=== PATIENT | female | born 1950 | race Caucasian/White ===

== ENCOUNTER 2023-08-24 05:59 | Observation (INO) ==
[~2023-08-24 05:59] MED LIST: Naloxone 0.4 mg VIAL 0.4 mg/ml 1 ml VIAL IV PRN; fentaNYL 100 mcg/2 ml 50 MCG/ML VIAL IV PRN
[2023-08-24 06:51] LABS: Rapid COVID-19 Molecular Undetected (Undetected)
[2023-08-24] MEDS ORDERED: ceFAZolin 2 GM PREMIX 2 GM/50 ML BAG ONE (07:00)
[2023-08-24] MEDS ORDERED: Tranexamic Acid 1 GM/100ML BAG 2,000 MG/200 ML BAG IV ONE (07:00)
[2023-08-24] MEDS: Lactated Ringers 1000 ml BAG 1,000 ML IV SCH ×2 (07:16→15:28)
[2023-08-24] MEDS ORDERED: ROPIVACAINE 5 MG/ML 30 ML BTL (0.5%) ONE ×2 (07:56→08:31)
[2023-08-24] MEDS ORDERED: fentaNYL 100 mcg/2 ml 50 MCG/ML VIAL ONE (07:57)
[2023-08-24] MEDS ORDERED: Dexamethasone IV 4 MG/ML VIAL 1 ml VIAL ONE ×2 (07:57→10:29)
[2023-08-24] MEDS ORDERED: Propofol 10 MG/ML 20 ML BTL ONE ×2 (08:06→10:26)
[2023-08-24] MEDS ORDERED: Phenylephrine 40 mcg/mL 10mL (400mcg) SYRINGE ONE (08:17)
[2023-08-24] MEDS ORDERED: Calcium Carb (TUMS) 500 mg CHEW TAB PO PRN (09:28)
[2023-08-24] MEDS ORDERED: Ondansetron 4 mg VIAL 2 MG/ML 2 ml VIAL IV PRN (09:28)
[2023-08-24] MEDS ORDERED: Morphine 2 MG/ML SYRINGE IV PRN (09:28)
[2023-08-24] MEDS ORDERED: Ondansetron ODT 4 mg TAB 4 MG TAB PO PRN (09:28)
[2023-08-24] MEDS ORDERED: Lactulose 30 ml UDC PO PRN (09:28)
[2023-08-24] MEDS ORDERED: Magnesium Hydroxide LIQ 30 ML UDC PO PRN (09:28)
[2023-08-24] MEDS ORDERED: Glycopyrrolate IV 0.2 MG/ML 1 ML VIAL ONE (10:00)
[2023-08-24] MEDS ORDERED: Ondansetron 4 mg VIAL 2 MG/ML 2 ml VIAL ONE ×2 (10:29→12:22)
[2023-08-24] MEDS ORDERED: Midazolam 2 mg/2 ml VIAL 1 mg/ml 2 ml VIAL (2 mg) ONE (11:10)
[2023-08-24] MEDS ORDERED: Acetaminophen IV 1 GM/100ML 1,000 MG/100 ML BAG IV ONE (12:22)
[2023-08-24] MEDS: Acetaminophen IV 1 GM/100ML 1,000 MG/100 ML BAG IV ONE (12:25)
[2023-08-24] MEDS: Ondansetron 4 mg VIAL 2 MG/ML 2 ml VIAL IV PRN (12:31)
[2023-08-24] MEDS: ceFAZolin 2 GM PREMIX 2 GM/50 ML BAG IV SCH (17:47)
[2023-08-24] MEDS ORDERED: ceFAZolin 2 GM in NS PREMIX 2 GM/100 ML BAG IVPB SCH (18:00)
[2023-08-24] MEDS: Magnesium Hydroxide LIQ 30 ML UDC PO SCH (19:16)
[2023-08-24] MEDS: Buffered Lidocaine 1% SYRIN 1 ml INTRADERM ONE (22:31)
[2023-08-25 06:29] LABS: Hematocrit 35.8 % (35-45); Hemoglobin 11.9 g/dL (11.5-14.3); Mean Platelet Volume 8.6 fL (7.5-11.2); Platelet Count 213 10^3/uL (150-450)
[2023-08-25 08:07] LABS: Calcium 8.7 mg/dL (8.6-10.3); Creatinine, Serum 0.79 mg/dL (0.51-0.95); Potassium 4.9 mmol/L (3.5-5.0)
[2023-08-25] MEDS: Vitamin THERAPEUTIC TAB PO SCH (08:12)
== END 2023-08-25 13:00 | disposition home or self-care (01) ==
LOC: SSU 05:59 → SDS 05:59 → EDSTATUS 09:00
PROVIDERS: ADMIT Orthopaedic Surgery Adult Reconstructive Orthopaedic Surgery; ATTEND Orthopaedic Surgery Adult Reconstructive Orthopaedic Surgery

== ENCOUNTER 2023-11-25 06:31 | Observation (INO) ==
[~2023-11-25 06:31] MED LIST changes: +Metoclopramide 5 MG/ML VIAL (10 mg) IV PRN; +NS 0.45% 1000 ml BAG 1,000 ML IV SCH; +Ondansetron 4 mg VIAL 2 MG/ML 2 ml VIAL IV PRN
[2023-11-25 07:07] LABS: Rapid COVID-19 Molecular Undetected (Undetected)
[2023-11-25] MEDS ORDERED: Dexamethasone IV 4 MG/ML VIAL 1 ml VIAL ONE (07:54)
[2023-11-25] MEDS ORDERED: Lidocaine 2% PF 5 ML VIAL ONE (07:54)
[2023-11-25] MEDS ORDERED: Midazolam 2 mg/2 ml VIAL 1 mg/ml 2 ml VIAL (2 mg) ONE (07:54)
[2023-11-25] MEDS ORDERED: fentaNYL 100 mcg/2 ml 50 MCG/ML VIAL ONE (07:54)
[2023-11-25] MEDS ORDERED: ROPIVACAINE 5 MG/ML 30 ML BTL (0.5%) ONE ×2 (07:55→09:14)
[2023-11-25] MEDS ORDERED: Tranexamic Acid 1 GM/100ML BAG 2,000 MG/200 ML BAG IV ONE (08:09)
[2023-11-25] MEDS ORDERED: ceFAZolin 2 GM PREMIX 2 GM/50 ML BAG ONE (08:09)
[2023-11-25] MEDS ORDERED: Famotidine IV 10 MG/ML 2 ml VIAL (20 mg) ONE (08:14)
[2023-11-25] MEDS ORDERED: Ondansetron 4 mg VIAL 2 MG/ML 2 ml VIAL IV PRN (12:35)
[2023-11-25] MEDS ORDERED: Lactulose 30 ml UDC PO PRN (12:35)
[2023-11-25] MEDS ORDERED: Morphine 2 MG/ML SYRINGE IV PRN (12:35)
[2023-11-25] MEDS ORDERED: Magnesium Hydroxide LIQ 30 ML UDC PO PRN (12:35)
[2023-11-25] MEDS ORDERED: Calcium Carb (TUMS) 500 mg CHEW TAB PO PRN (12:35)
[2023-11-25] MEDS ORDERED: Ondansetron ODT 4 mg TAB 4 MG TAB PO PRN (12:35)
[2023-11-25] MEDS ORDERED: hydrALAZINE 20 mg/ml 1 ML Vial IV ONE (13:32)
[2023-11-25] MEDS: hydrALAZINE 20 mg/ml 1 ML Vial IV IV SLOW PU ONE (13:33)
[2023-11-25] MEDS: Lactated Ringers 1000 ml BAG 1,000 ML IV SCH ×2 (15:12→16:17)
[2023-11-25] MEDS: Acetaminophen IV 1 GM/100ML 1,000 MG/100 ML BAG IV ONE (16:16)
[2023-11-25] MEDS: Buffered Lidocaine 1% SYRIN 1 ml INTRADERM ONE (16:16)
[2023-11-25] MEDS: Scopolamine 1 mg/72hr PATCH TRANSDERM ONE (16:16)
[2023-11-25] MEDS: ceFAZolin *3* GM in NS PREMIX 3 GM/100 ML BAG IV SCH (18:23)
[2023-11-25] MEDS: Magnesium Hydroxide LIQ 30 ML UDC PO SCH (20:29)
[2023-11-26 06:20] LABS: Hematocrit 36.5 % (35-45); Mean Platelet Volume 8.8 fL (7.5-11.2); Platelet Count 223 10^3/uL (150-450)
[2023-11-26 06:36] LABS: Calcium 8.9 mg/dL (8.6-10.3); Creatinine, Serum 0.78 mg/dL (0.51-0.95); Potassium 4.3 mmol/L (3.5-5.0); eGFR CKD-EPI 79.2 (>60)
[2023-11-26] MEDS: Vitamin THERAPEUTIC TAB PO SCH (08:05)
[2023-11-26 10:38] VITALS: BP 145/76
== END 2023-11-26 12:30 | disposition home or self-care (01) ==
LOC: OR 06:31 → SSU 06:31
PROVIDERS: ADMIT Orthopaedic Surgery Adult Reconstructive Orthopaedic Surgery; ATTEND Orthopaedic Surgery Adult Reconstructive Orthopaedic Surgery